=== PATIENT | female | born 1970 | race Caucasian/White ===

== ENCOUNTER 2021-04-27 15:44 | Emergency (ER) | payer MEDICAID ==
[~2021-04-27] VITALS: Ht 167.6 cm; Wt 77.1 kg
[2021-04-27] MEDS ORDERED: LORAZEPAM 0.5 MG TABLET PO ONE (16:45)
[2021-04-27] MEDS ORDERED: MAG HYDROX/AL HYDROX/SIMETH 30 ML LIQUID UDC PO ONE (16:45)
[2021-04-27] MEDS ORDERED: LIDOCAINE VISCUS 2% 15 ML UDC MM ONE (16:45)
[2021-04-27] MEDS ORDERED: MAG HYDROX/AL HYDROX/SIMETH 30 ML LIQUID UDC ONE (17:00)
[2021-04-27] MEDS ORDERED: LORAZEPAM 1 MG TABLET ONE (17:00)
[2021-04-27] MEDS ORDERED: LIDOCAINE VISCUS 2% 15 ML UDC ONE ×2 (17:00→17:02)
[2021-04-27 17:35] LABS: HEMATOCRIT 39.9 % (31.2-41.9); MEAN CORPUSCULAR HEMOGLOBIN 31.9 uug (24.7-32.8); MEAN CORPUSCULAR VOLUME 94.3 fL (75.5-95.3); PLATELET COUNT (AUTO) 430 K/uL (179-408)
[2021-04-27 17:41] LABS: CREATININE 0.8 mg/dL (0.6-1.3); POTASSIUM 4.2 mmol/L (3.5-5.1)
[2021-04-27 17:55] LABS: BILIRUBIN,DIRECT 0.1 mg/dL (0.0-0.2); BILIRUBIN,TOTAL 0.3 mg/dL (0.2-1.0); TOTAL PROTEIN, SERUM 7.5 g/dL (6.4-8.2)
[2021-04-27] MEDS ORDERED: LORA-259 PO (18:21)
[2021-04-27] MEDS ORDERED: DEXA6TAB6 PO (18:21)
[2021-04-27] MEDS ORDERED: DICY20TA11 PO (18:21)
[2021-04-27] MEDS ORDERED: ONDA4TAB11 PO (18:21)
--- NOTE | 2021-04-27 18:31 | NUR ---
pt is asleep and kept comfortable. with d/c instructions
--- NOTE | 2021-04-27 18:58 | NUR ---
pt requested to eat before being discharged. provided full regular meal. able to tolerate. Patient discharged to home in stable condition. Written and verbal after care instructions given. Patient verbalizes understanding of instructions. Stressed follow up or return to ER for worsening s/s.
[2021-04-27 18:59] VITALS: BP 130/54
--- NOTE | 2021-04-27 19:49 | NUR ---
Patient discharged to home in stable condition. Written and verbal after care instructions given. Patient verbalizes understanding of instructions. Stressed follow up or return to ER for worsening s/s.
== END 2021-04-27 19:50 | disposition home or self-care (01) ==
LOC: ER 17:01
DX: U07.1 COVID-19 (principal); F19.10 Other psychoactive substance abuse, uncomplicated; R11.10 Vomiting, unspecified; R19.7 Diarrhea, unspecified; F41.9 Anxiety disorder, unspecified
CPT/HCPCS: 36415; 83690; 85025; A4663

== ENCOUNTER 2021-05-05 01:56 | Emergency (ER) | payer MEDICAID ==
[~2021-05-05] VITALS: Ht 165.1 cm; Wt 77.1 kg
[~2021-05-05 01:56] MED LIST: DEXA6TAB6 PO; DICY20TA11 PO; LORA-259 PO; ONDA4TAB11 PO
[2021-05-05] MEDS ORDERED: ACET-2154 PO (02:23)
[2021-05-05] MEDS ORDERED: ACETAMINOPHEN 325 MG TABLET PO ONE (02:30)
[2021-05-05] MEDS ORDERED: ACETAMINOPHEN 325 MG TABLET ONE (02:32)
== END 2021-05-05 02:46 | disposition home or self-care (01) ==
LOC: ER 02:07
DX: H92.01 Otalgia, right ear (principal); U07.1 COVID-19; R03.0 Elevated blood-pressure reading, without diagnosis of hypertension
CPT/HCPCS: A4663